=== PATIENT | male | born 1950 | race Caucasian/White ===

== ENCOUNTER 2019-09-21 05:40 | Outpatient (CLI) | payer MEDICARE ==
[~2019-09-21] VITALS: Ht 177 cm; Wt 90.0 kg
[2019-09-21] MEDS ORDERED: ASPI-999 PO (15:05)
[2019-09-21] MEDS ORDERED: CELE100C PO (15:05)
[2019-09-21] MEDS ORDERED: ATOR40TA70 PO (15:05)
[2019-09-21] MEDS ORDERED: INSU100V5 SQ (15:05)
[2019-09-21] MEDS ORDERED: FLUT9.9S NS (15:05)
[2019-09-21] MEDS ORDERED: LACT1CAP39 PO (15:05)
[2019-09-21] MEDS ORDERED: EMPA25TA PO (15:05)
[2019-09-21] MEDS ORDERED: LISI2.5T PO (15:05)
== END 2019-09-21 15:19 ==
LOC: PREOP 05:40
PROVIDERS: ATTEND Urology
DX: Z01.818 Encounter for other preprocedural examination (principal); N20.0 Calculus of kidney

== ENCOUNTER 2019-09-23 06:06 | Day surgery (SDC) | payer MEDICARE, BC ==
[~2019-09-23] VITALS: Ht 177 cm; Wt 90.0 kg
[2019-09-23] VITALS (10 sets, daily range): BP systolic 117–155; BP diastolic 53–90
[~2019-09-23 06:06] MED LIST: ASPI-999 PO; ATOR40TA70 PO; CELE100C PO; EMPA25TA PO; FLUT9.9S NS; INSU100V5 SQ; LACT1CAP39 PO; LISI2.5T PO
--- OUTSIDE RECORDS SUMMARY | 2019-09-23 06:19 | XMS REPORT | Continuity of Care Document ---
Author Organization Unknown Address Unknown Phone Unavailable Allergies Active Description Code Type Severity Reaction Onset Reported/Identified Relationship to Patient Clinical Status Yes No Known Drug Allergies [id number] Drug Allergy Unknown N/A 09/21/2019 Medications There is no data. Problems There is no data. Procedures There is no data. Results There is no data. Encounters ACCT No. Visit Date/Time Discharge Status Pt. Type Provider Facility Loc./Unit Complaint [id number] 09/21/2019 05:40:00 020 15:19:00 DIS Outpatient EDEL MASSEY MD Via [facility] PREOP CYSTO, RT. ESWL AND [place] NT PLACEMENT [id number] 09/23/2019 08:00:00 P EN Preadmit EDEL MASSEY MD Via [facility] [place] RIGHT RENAL STONES
[2019-09-23] MEDS ORDERED: cefTRIAXone FOR IV USE 1,000 MG in WATER (STERILE) FOR INJECTION 10 ML IV ONE (06:30)
[2019-09-23] MEDS: LACTATED RINGERS 1,000 ML IV PRN ×2 (06:53→08:05)
[2019-09-23] MEDS ORDERED: proPOfol 200 MG/20 ML (DIPRIVAN) VIAL IV ONE (06:55)
[2019-09-23] MEDS ORDERED: SEVOFLURANE (ULTANE) 15 ML INHAL SOLN ONE (06:55)
[2019-09-23] MEDS ORDERED: LIDOCAINE PF 2% 5 ML (XYLOCAINE) VIAL ONE (06:55)
[2019-09-23] MEDS ORDERED: fentaNYL INJECTION 100 MCG/2 ML AMP ONE (06:55)
[2019-09-23] MEDS ORDERED: MIDAZOLAM 2 MG/2 ML (VERSED) VIAL ONE (06:55)
[2019-09-23] MEDS ORDERED: ONDANSETRON 4 MG/2 ML (SDV) Z0FRAN ONE (06:55)
--- NOTE | 2019-09-23 07:04 | Progress Note-Pre Operative ---
Pre-Operative Progress Note H&P Reviewed The H&P was reviewed, patient examined and no changes noted. Date Seen by Provider: Sep 23, 2019 Time Seen by Provider: 07:03 Date H&P Reviewed: Sep 23, 2019 Time H&P Reviewed: 07:03 Pre-Operative Diagnosis: RT RENAL STONE EDEL MASSEY MD Sep 23, 2019 07:03
--- NOTE | 2019-09-23 07:12 | Progress Note-Post Operative ---
Post-Operative Progess Note Surgeon (s)/Slice Cutting Machine Operator (s) Surgeon EDEL MASSEY MD Slice Cutting Machine Operator: NONE Pre-Operative Diagnosis RT RENAL STONE Post-Operative Diagnosis SAME Procedure & Operative Findings Date of Procedure 09/23/19 Procedure Performed/Findings CYSTOSCOPY WITH INSERTION OF RT STENT AND RT ESWL Anesthesia Type GENERAL Estimated Blood Loss Estimated blood loss (mL): NONE Specimens/Packing Specimens Removed NONE Packing: NONE EDEL MASSEY MD Sep 23, 2019 07:12
--- NOTE | 2019-09-23 07:15 | Discharge Inst-Urology ---
Discharge Inst-Urology Reconcile Patient Problems Problems Reviewed?: Yes Final Diagnosis RT RENAL STONE Patient Instructions/Follow Up Plan/Assessment/Instructions Please make appointment to been seen in office Wednesday 10/04, KUB prior to it KUB on way home. Post ESWL instructions Stay off ASA Increase oral fluids for 48 hours and then as needed. Diet and Activity as tolerated. If questions or concerns contact your physician Or seek help at emergency department. EDEL MASSEY MD Sep 23, 2019 07:15
[2019-09-23] MEDS ORDERED: morphine INJ 10 MG/ML 1ML (SYR OR VIAL) IVP ONE (08:30)
[2019-09-23] MEDS ORDERED: ONDANSETRON 4 MG/2 ML (SDV) Z0FRAN IVP PRN (08:30)
--- NOTE | 2019-09-23 08:41 | Diagnostic Imaging Report ---
EXAMINATION: Abdominal radiographs, single supine view. DATE: September 23, 2019. CLINICAL INDICATION: 69-year-old male, history of right renal stone. COMPARISON: None available. COMMENTS: There is a large calcification measuring up to approximately 3.2 cm in size projecting in the expected location of the right renal pelvis. This is not able to be definitively localized. There are additional areas of calcification which may be projecting at the level of the right lower kidney. This also could relate to fecal contents. There are gas-filled segments of bowel which are not grossly distended. There are bilateral hip prostheses. IMPRESSION: 1. There is a 3.2 cm calcification projecting in the region of the right renal pelvis although not well localized. This potentially could relate to a large stone. 2. Additional calcifications in the right side of the abdomen which could relate to right renal stones versus fecal contents. Dictated by: Dictated on workstation # [id number]
--- NOTE | 2019-09-23 08:58 | OPERATIVE REPORT ---
DATE OF SERVICE: 09/23/2019 PREOPERATIVE DIAGNOSIS: Right renal stone. POSTOPERATIVE DIAGNOSIS: Right renal stone. OPERATIONS PERFORMED: Cystoscopy, right renal stone manipulation and insertion of right stent and right ESWL. SURGEON: Thanh Massey MD. ANESTHESIA: General. COMPLICATIONS: None. PROCEDURE IN DETAIL: The patient on the ESWL table in the lithotomy position, genitalia were prepped and draped in the usual sterile fashion. Cystoscope was introduced under vision. The anterior urethra was normal. The prostate was kind of vascular. There was a median bar. The bladder was inspected, revealed some trabeculations, no foreign body, bladder tumor or stone visualized. The right ureteral orifices were kind of small in size. I had to dilate the right ureteral orifice to accommodate a 6-Indonesian 26 cm stent guided fluoroscopically. I inserted it all the way to the right renal pelvis, removed the guidewire and the stent was seen jetting nicely proximally fluoroscopically and distally endoscopically. Then, the patient was put supine and the stone was localized. Shocks were delivered at kV of 6. Total of 3000 shocks, achieved fairly good results on the lateral part of the stone. The patient received 30 mg of Toradol and 40 mg of Lasix IV at the end of the procedure. He tolerated the procedure and anesthesia well and was sent to recovery room in stable condition. PLAN: We will see the results of the ESWL to decide the next step and that was mentioned to him. Again, possibly need the percutaneous nephrolithotomy at or else of his choice or if we achieve good results today, maybe, try a second ESWL. This was fully explained to the patient preoperatively as well as his . Job ID: [id number] DocumentID: [id number] Dictated Date: 09/23/2019 08:19:16 Senior Quality Manager Date: 09/23/2019 08:57:32 Dictated By: THANH MASSEY MD
[2019-09-23] MEDS ORDERED: TMSL.4C PO (09:22)
[2019-09-23] MEDS ORDERED: PHEN-640 PO (09:22)
[2019-09-23] MEDS ORDERED: TRM50T PO (09:22)
[2019-09-23] MEDS ORDERED: SULF1TAB35 PO (09:22)
--- NOTE | 2019-09-23 10:30 | Diagnostic Imaging Report ---
INDICATION: Nephrolithiasis KUB 10:30 AM There are multiple stone fragments in the right kidney. There is right double-J ureteral stent in place. Patient's had bilateral hip arthroplasties. IMPRESSION: Right nephrolithiasis. There appear to be multiple fragmented stone fragments in the right kidney. These appear to be in clusters within 2 calyces and a 3rd cluster near the right ureteropelvic junction. Dictated by: Dictated on workstation # [id number]
--- NOTE | 2019-09-23 14:20 | Anesthesia-General Post-Op ---
General Patient Condition Mental Status/LOC: Same as Preop Cardiovascular: Satisfactory Nausea/Vomiting: Absent Respiratory: Satisfactory Pain: Controlled Complications: Absent Post Op Complications Complications None Follow Up Care/Instructions Patient Instructions None needed. Anesthesia/Patient Condition Patient Condition Patient was seen this morning after the procedure and he was doing well, no complaints, stable vital signs, no apparent adverse anesthesia problems. MORRIS SANTIAGO DO Sep 23, 2019 14:20
== END 2019-09-23 10:30 | disposition home or self-care (01) ==
LOC: SDC 06:06
PROVIDERS: ATTEND Urology
DX: N20.0 Calculus of kidney (principal); I10 Essential (primary) hypertension; I25.10 Atherosclerotic heart disease of native coronary artery without angina pectoris; I48.91 Unspecified atrial fibrillation; G47.33 Obstructive sleep apnea (adult) (pediatric); E11.9 Type 2 diabetes mellitus without complications; Z79.899 Other long term (current) drug therapy; Z88.0 Allergy status to penicillin; Z87.11 Personal history of peptic ulcer disease; Z95.5 Presence of coronary angioplasty implant and graft
CPT/HCPCS: 50590; 74018; 82962; 87081; C2625

== ENCOUNTER → 2019-10-05 | Outpatient (CLI) | payer MEDICARE, BC ==
[~2019-10-05] MED LIST changes: +NITR-65 PO; +PHEN-640 PO; +SULF1TAB35 PO; +TMSL.4C PO; +TRM50T PO
--- NOTE | 2019-10-05 14:28 | Diagnostic Imaging Report ---
INDICATION: Stent placement, followup. TECHNIQUE: Two supine view of the abdomen at 2:18 PM. CORRELATION STUDY: 09/23/2019. FINDINGS: A right-sided double pigtail ureteral stent is present. There has been slight interval inferior migration of the stent compared to the prior study. The proximal loop is now formed over the expected location of the inferior pole. There is again demonstration of multiple what appear to be somewhat grouped areas of calcification over the right kidney. The largest is over the inferior pole and renal hilum. There does appear to be slight interval migration of some of these calcifications into the region of the proximal ureter. The left renal silhouette and expected course of the left ureter appear unchanged. The bowel gas pattern is unremarkable with spina bifida occulta defect at the L5 level. IMPRESSION: Right-sided nephrolithiasis with three somewhat clustered regions of calcification again demonstrated. Very slight inferior migration of the right renal stent compared to the prior study. Dictated by: Dictated on workstation # [id number]
== END ==
LOC: RAD 13:59
PROVIDERS: ATTEND Urology
DX: N20.0 Calculus of kidney (principal); Z98.890 Other specified postprocedural states
CPT/HCPCS: 74018

== ENCOUNTER 2019-10-06 06:16 | Day surgery (SDC) | payer MEDICARE, BC ==
[2019-10-06] VITALS (10 sets, daily range): BP systolic 107–133; BP diastolic 64–78
[~2019-10-06] VITALS: Ht 175.3 cm; Wt 89.4 kg
[~2019-10-06 06:16] MED LIST changes: -NITR-65 PO
[2019-10-06] MEDS ORDERED: cefTRIAXone FOR IV USE 1,000 MG in WATER (STERILE) FOR INJECTION 10 ML IV ONE (06:45)
[2019-10-06] MEDS ORDERED: LACTATED RINGERS 1,000 ML IV PRN (06:45)
--- NOTE | 2019-10-06 07:02 | Progress Note-Pre Operative ---
Pre-Operative Progress Note H&P Reviewed The H&P was reviewed, patient examined and no changes noted. Date Seen by Provider: Oct 06, 2019 Time Seen by Provider: 07:01 Date H&P Reviewed: Oct 06, 2019 Time H&P Reviewed: 07:01 Pre-Operative Diagnosis: RT RENAL STONES EDEL MASSEY MD Oct 06, 2019 07:02
--- NOTE | 2019-10-06 07:37 | Diagnostic Imaging Report ---
INDICATION: Right-sided renal stone. TECHNIQUE: 2 supine view of the abdomen 6:42 AM CORRELATION STUDY: 10/05/2019 FINDINGS: Right ureteral stent remains in place. Large amount of overlying bowel gas and stool is present. Geographic, regional areas of calcification the right renal silhouettes are again demonstrated. This includes a large grouping over the expected location over the renal pelvis as well as small calcification expected location of proximal right ureter just adjacent to the proximal stent. Additional migration of calcifications over the ureteral stent is not suggested. IMPRESSION: 1. No appreciable change in the regional calcifications over the right renal silhouette and renal pelvis including proximal right ureter. Right ureteral stent remains in place. Dictated by: Dictated on workstation # [id number]
[2019-10-06] MEDS ORDERED: PROPOFOL INJECTION 50 ML IV ONE (08:09)
[2019-10-06] MEDS ORDERED: fentaNYL INJECTION 100 MCG/2 ML AMP ONE (08:09)
[2019-10-06] MEDS ORDERED: MIDAZOLAM 2 MG/2 ML (VERSED) VIAL ONE (08:10)
--- NOTE | 2019-10-06 08:41 | Discharge Inst-Urology ---
Discharge Inst-Urology Reconcile Patient Problems Problems Reviewed?: Yes Final Diagnosis RT RENAL STONE Patient Instructions/Follow Up Plan/Assessment/Instructions Please make appointment to been seen in office Thursday 10/19, KUB prior to it KUB on way home. Post ESWL instructions Stay off ASA Increase oral fluids for 48 hours and then as needed. Diet and Activity as tolerated. If questions or concerns contact your physician Or seek help at emergency department. EDEL MASSEY MD Oct 06, 2019 08:41
--- NOTE | 2019-10-06 08:42 | Progress Note-Post Operative ---
Post-Operative Progess Note Surgeon (s)/Extension Service Specialist (s) Surgeon EDEL MASSEY MD Extension Service Specialist: NONE Pre-Operative Diagnosis RT RENAL STONES Post-Operative Diagnosis SAME Procedure & Operative Findings Date of Procedure 10/06/19 Procedure Performed/Findings RT ESWL Anesthesia Type GENERAL Estimated Blood Loss Estimated blood loss (mL): NONE Specimens/Packing Specimens Removed NONE Packing: NONE EDEL MASSEY MD Oct 06, 2019 08:42
[2019-10-06] MEDS ORDERED: KETOROLAC 30 MG/ML VIAL ONE (08:58)
[2019-10-06] MEDS ORDERED: ONDANSETRON 4 MG/2 ML (SDV) Z0FRAN ONE ×2 (08:58→09:01)
[2019-10-06] MEDS ORDERED: SEVOFLURANE (ULTANE) 15 ML INHAL SOLN ONE ×2 (08:58→08:59)
[2019-10-06] MEDS ORDERED: FUROSEMIDE 40 MG/4 ML INJ (LASIX) ONE (08:58)
[2019-10-06] MEDS ORDERED: morphine INJ 10 MG/ML 1ML (SYR OR VIAL) IVP ONE (09:15)
[2019-10-06] MEDS ORDERED: fentaNYL INJECTION 100 MCG/2 ML AMP IVP ONE (09:15)
[2019-10-06] MEDS ORDERED: MEPERIDINE (DEMEROL) INJ 50 MG/ML IVP ONE (09:15)
[2019-10-06] MEDS ORDERED: ONDANSETRON 4 MG/2 ML (SDV) Z0FRAN IVP PRN (09:15)
--- NOTE | 2019-10-06 10:23 | Anesthesia-General Post-Op ---
General Patient Condition Mental Status/LOC: Same as Preop Cardiovascular: Satisfactory Nausea/Vomiting: Absent Respiratory: Satisfactory Pain: Controlled Complications: Absent Post Op Complications Complications None Follow Up Care/Instructions Patient Instructions None needed. Anesthesia/Patient Condition Patient Condition Patient is doing well, no complaints, stable vital signs, no apparent adverse anesthesia problems. No complications reported per nursing. JEFFREY JANSEN CRNA Oct 06, 2019 10:23
[2019-10-06] MEDS ORDERED: NITR-65 PO (10:39)
--- NOTE | 2019-10-06 11:40 | Diagnostic Imaging Report ---
INDICATION: Status post ESWL. COMPARISON: Earlier same day. FINDINGS: Single frontal radiographic view of the abdomen was obtained and again demonstrates indwelling right-sided double-J ureteral stent with large calculi projecting over the area of the right renal pelvis and inferior pole of the right kidney. Smaller more linear-appearing calculus projecting lateral to the right L4 transverse process on exam from earlier same day is now absent and may be fragmented. Small bowel loops are nondistended. There is no large collection of free intraperitoneal air. Moderate air and stool is noted scattered about the colon. IMPRESSION: 1. Interval change in right-sided renal calculi as described above. 2. Moderate colonic air and stool. Please correlate for constipation. Dictated by: Dictated on workstation # [id number]
--- NOTE | 2019-10-06 15:44 | OPERATIVE REPORT ---
DATE OF SERVICE: 10/06/2019 PREOPERATIVE DIAGNOSIS: Right renal stones. POSTOPERATIVE DIAGNOSIS: Right renal stones. OPERATION PERFORMED: Right ESWL. SURGEON: Thanh Massey MD ANESTHESIA: General. COMPLICATIONS: None. DESCRIPTION OF PROCEDURE: Under satisfactory general anesthesia, the patient in supine position on the ESWL table, the remaining big bulk of the stone was localized. Shocks were delivered at kV of 6. We delivered a total of 3000 shocks. It did not really broke up the stone as good as it did the first time. The patient received 40 mg of Lasix, 30 mg of Toradol IV at the end of the procedure. He tolerated the procedure and anesthesia well and was sent to recovery room in stable condition. PLAN: We will refer him to [facility] for a percutaneous nephrolithotomy, so that it can suction the fragments from the lower pole and then work on the pelvic part of the stone. Job ID: [id number] DocumentID: [id number] Dictated Date: 10/06/2019 08:57:08 Pan Puller Date: 10/06/2019 15:42:56 Dictated By: THANH MASSEY MD
== END 2019-10-06 11:10 | disposition home or self-care (01) ==
LOC: SDC 06:16
PROVIDERS: ATTEND Urology
DX: N20.0 Calculus of kidney (principal); E11.9 Type 2 diabetes mellitus without complications; G47.33 Obstructive sleep apnea (adult) (pediatric); E78.5 Hyperlipidemia, unspecified; N40.0 Benign prostatic hyperplasia without lower urinary tract symptoms; Z96.643 Presence of artificial hip joint, bilateral; I10 Essential (primary) hypertension; I25.10 Atherosclerotic heart disease of native coronary artery without angina pectoris; Z88.0 Allergy status to penicillin; Z95.5 Presence of coronary angioplasty implant and graft; Z87.891 Personal history of nicotine dependence; Z87.19 Personal history of other diseases of the digestive system; Z79.4 Long term (current) use of insulin; Z79.899 Other long term (current) drug therapy; Z91.048 Other nonmedicinal substance allergy status; Z96.619 Presence of unspecified artificial shoulder joint; Z86.79 Personal history of other diseases of the circulatory system; Z11.2 Encounter for screening for other bacterial diseases
CPT/HCPCS: 74018; 82962; 87081

== ENCOUNTER → 2019-10-20 | Outpatient (CLI) | payer MEDICARE, BC ==
[~2019-10-20] MED LIST changes: +NITR-65 PO
--- NOTE | 2019-10-20 14:08 | Diagnostic Imaging Report ---
INDICATION: Nephrolithiasis. COMPARISON: 10/06/2019. FINDINGS: The right nephroureteral stent remains in place. There are unchanged calcifications in the region of the right kidney and right UPJ. The bowel gas pattern is nonspecific. There are mild degenerative changes in the spine. IMPRESSION: Unchanged right renal calcifications as described. Dictated by: Dictated on workstation # [id number]
== END ==
LOC: RAD 13:06
PROVIDERS: ATTEND Urology
DX: N20.2 Calculus of kidney with calculus of ureter (principal); M47.9 Spondylosis, unspecified; Z96.0 Presence of urogenital implants
CPT/HCPCS: 74018